=== PATIENT | male | born 1990 | race Caucasian/White ===

== ENCOUNTER 2017-11-22 12:38 | Emergency (ER) | payer MEDICAID, OTHER ==
[~2017-11-22] VITALS: Ht 172.7 cm; Wt 100.0 kg
[~2017-11-22 12:38] MED LIST: EPIN0.3P17 IM; PRED20TA PO
[2017-11-22] MEDS ORDERED: ondansetron/PF 4mg/2ml inj IV ONE (12:50)
[2017-11-22] MEDS ORDERED: normal saline 1000ML IV soln IVB ONE (12:50)
[2017-11-22 13:15] LABS: BASOPHILS % (AUTO) 0.2 % (0-1); EOSINOPHILS # (AUTO) 0.1 X10'3 (0-0.9); EOSINOPHILS % (AUTO) 0.5 % (0-6); HEMATOCRIT 49.8 % (42.0-52.0); LYMPHOCYTES # (AUTO) 0.5 X10'3 (1.1-4.8); LYMPHOCYTES % (AUTO) 3.6 % (21-51); MEAN CORPUSCULAR HEMOGLOBIN 28.5 PG (27.0-31.0); MEAN CORPUSCULAR HGB CONC 34.2 % (33.0-36.5); MEAN CORPUSCULAR VOLUME 83.2 FL (78-98); MEAN PLATELET VOLUME 7.5 FL (7.4-10.4); MONOCYTES # (AUTO) 0.4 X10'3 (0-0.9); MONOCYTES % (AUTO) 3.3 % (2-12); NEUTROPHILS # (AUTO) 12.1 X10'3 (1.8-7.7); NEUTROPHILS % (AUTO) 92.4 % (42-75); PLATELET COUNT 245 X10'3 (140-440); RED BLOOD COUNT 5.99 X10'6 (4.70-6.10); RED CELL DISTRIBUTION WIDTH 12.4 % (11.5-14.5); WHITE BLOOD COUNT 13.1 X10'3 (4.5-11.0)
[2017-11-22 13:31] LABS: ALANINE AMINOTRANSFERASE 67 U/L (12-78); ALBUMIN 4.2 G/DL (3.4-5.0); ALBUMIN/GLOBULIN RATIO 1.3 (1.1-1.5); ALKALINE PHOSPHATASE 37 IU/L (46-116); ANION GAP 14 (8-16); ASPARTATE AMINO TRANSFERASE 25 U/L (10-37); BILIRUBIN,TOTAL 0.7 MG/DL (0.1-1.0); BLOOD UREA NITROGEN 12 MG/DL (7-18); BUN/CREATININE RATIO 14.3 (5.4-32.0); CALCIUM 8.9 MG/DL (8.5-10.1); CHLORIDE 104 MMOL/L (99-107); CREATININE 0.84 MG/DL (0.60-1.10); GLUCOSE 115 MG/DL (70-104); LIPASE 107 U/L (73-393); SODIUM 140 MMOL/L (135-145); TOTAL CARBON DIOXIDE 22.5 MMOL/L (24-32); TOTAL PROTEIN 7.5 G/DL (6.4-8.2); eGFR > 90 ML/MIN
[2017-11-22 14:24] VITALS: BP 125/78
[2017-11-22] MEDS ORDERED: ONDA8TAB9 PO (14:32)
== END 2017-11-22 14:53 | disposition home or self-care (01) ==
LOC: ER 12:39
DX: K52.9 Noninfective gastroenteritis and colitis, unspecified (principal); Z79.899 Other long term (current) drug therapy
CPT/HCPCS: 36415; 80053; 83690; 85025; 96361; 96374; 99284; J2405; J7030

== ENCOUNTER 2022-01-28 09:30 | Emergency (ER) | payer BC, MEDICAID ==
[~2022-01-28] VITALS: Ht 175.3 cm; Wt 107.4 kg
[~2022-01-28 09:30] MED LIST changes: +ONDA8TAB9 PO
[2022-01-28 12:08] LABS: BASOPHILS # (AUTO) 0.1 X10'3 (0-0.2); BASOPHILS % (AUTO) 0.6 % (0-1); EOSINOPHILS % (AUTO) 0.2 % (0-6); HEMATOCRIT 48.6 % (42.0-52.0); HEMOGLOBIN 16.5 g/dl (14.0-17.9); LYMPHOCYTES # (AUTO) 1.3 X10'3 (1.1-4.8); LYMPHOCYTES % (AUTO) 8.6 % (21-51); MEAN CORPUSCULAR HEMOGLOBIN 28.4 PG (27.0-31.0); MEAN CORPUSCULAR HGB CONC 33.9 g/dL (33.0-36.5); MEAN CORPUSCULAR VOLUME 83.8 FL (78-98); MEAN PLATELET VOLUME 7.6 FL (7.4-10.4); MONOCYTES % (AUTO) 6.3 % (2-12); NEUTROPHILS # (AUTO) 13.1 X10'3 (1.8-7.7); NEUTROPHILS % (AUTO) 84.3 % (42-75); PLATELET COUNT 295 X10'3 (140-440); RED CELL DISTRIBUTION WIDTH 13.2 % (11.5-14.5); WHITE BLOOD COUNT 15.6 X10'3 (4.5-11.0)
[2022-01-28 12:24] LABS: ALANINE AMINOTRANSFERASE 63 U/L (12-78); ALBUMIN 4.1 G/DL (3.4-5.0); ALBUMIN/GLOBULIN RATIO 1.1 (1.1-1.5); ALKALINE PHOSPHATASE 36 IU/L (46-116); ANION GAP 11 (8-16); ASPARTATE AMINO TRANSFERASE 37 U/L (10-37); BILIRUBIN,TOTAL 0.7 MG/DL (0.1-1.0); BLOOD UREA NITROGEN 12 MG/DL (7-18); BUN/CREATININE RATIO 14.8 (5.4-32.0); CHLORIDE 102 MMOL/L (99-107); CHOL/HDL RATIO 4.5 (0.00-4.99); CHOLESTEROL 205 MG/DL (0-200); CREATININE 0.81 MG/DL (0.60-1.10); GLUCOSE 110 MG/DL (70-104); HDL CHOLESTEROL 46 MG/DL (35-60); LDL CHOLESTEROL 128 MG/DL (50-100); POTASSIUM 3.8 MMOL/L (3.5-5.1); SODIUM 139 MMOL/L (135-145); TOTAL CARBON DIOXIDE 25.9 MMOL/L (24-32); TOTAL PROTEIN 7.7 G/DL (6.4-8.2); TRIGLYCERIDES 158 MG/DL (20-135); eGFR > 90 ML/MIN
[2022-01-28] MEDS ORDERED: ondansetron/PF 4mg/2ml inj IV ONE (12:30)
[2022-01-28] MEDS ORDERED: normal saline 1000ml 1,000 ML IV ONE ×2 (12:30→13:25)
[2022-01-28] MEDS ORDERED: ONDA4TAB12 PO (13:47)
--- NOTE | 2022-01-28 14:20 | NUR ---
PO CHALLENGE WITH WATER. PATIENT TOLERATED WATER.
[2022-01-28 14:35] VITALS: BP 142/87
== END 2022-01-28 14:39 | disposition home or self-care (01) ==
LOC: ER 09:30
DX: K29.00 Acute gastritis without bleeding (principal); Z20.822 Contact with and (suspected) exposure to COVID-19; Z79.899 Other long term (current) drug therapy
CPT/HCPCS: 36415; 80053; 80061; 84145; 85025; 87502; 87503; 87635; 96361; 96374; 99285; C9803; J2405; J7030

== ENCOUNTER 2023-04-03 11:30 | Emergency (ER) | payer BC ==
[~2023-04-03] VITALS: Ht 177.8 cm; Wt 104.5 kg
[~2023-04-03 11:30] MED LIST changes: +ONDA4TAB12 PO
[2023-04-03 11:41] VITALS: BP 153/97; PULSE 124; RESP 20; TEMP 98.3; O2SAT 94
[2023-04-03 13:07] LABS: BASOPHILS % (AUTO) 0.2 % (0-1); EOSINOPHILS # (AUTO) 0.2 X10'3 (0-0.9); EOSINOPHILS % (AUTO) 1.3 % (0-6); HEMATOCRIT 45.5 % (42.0-52.0); HEMOGLOBIN 15.6 g/dl (14.0-17.9); LYMPHOCYTES # (AUTO) 0.6 X10'3 (1.1-4.8); LYMPHOCYTES % (AUTO) 4.5 % (21-51); MEAN CORPUSCULAR HEMOGLOBIN 28.9 PG (27.0-31.0); MEAN CORPUSCULAR HGB CONC 34.3 g/dL (33.0-36.5); MEAN CORPUSCULAR VOLUME 84.1 FL (78-98); MEAN PLATELET VOLUME 7.7 FL (7.4-10.4); MONOCYTES # (AUTO) 0.9 X10'3 (0-0.9); MONOCYTES % (AUTO) 7.4 % (2-12); NEUTROPHILS # (AUTO) 10.6 X10'3 (1.8-7.7); NEUTROPHILS % (AUTO) 86.6 % (42-75); PLATELET COUNT 218 X10'3 (140-440); RED BLOOD COUNT 5.41 X10'6 (4.70-6.10); WHITE BLOOD COUNT 12.3 X10'3 (4.5-11.0)
[2023-04-03 13:12] LABS: ALANINE AMINOTRANSFERASE 69 U/L (12-78); ALBUMIN 4.1 G/DL (3.4-5.0); ALBUMIN/GLOBULIN RATIO 1.1 (1.1-1.5); ALKALINE PHOSPHATASE 42 IU/L (46-116); ANION GAP 11 (8-16); ASPARTATE AMINO TRANSFERASE 26 U/L (10-37); BILIRUBIN,TOTAL 0.5 MG/DL (0.1-1.0); BLOOD UREA NITROGEN 8 MG/DL (7-18); CALCIUM 9.4 MG/DL (8.5-10.1); CHLORIDE 100 MMOL/L (99-107); CREATININE 0.73 MG/DL (0.60-1.10); GLUCOSE 109 MG/DL (70-104); LIPASE 88 U/L (73-393); POTASSIUM 3.8 MMOL/L (3.5-5.1); SODIUM 138 MMOL/L (135-145); TOTAL CARBON DIOXIDE 26.7 MMOL/L (24-32); TOTAL PROTEIN 7.7 G/DL (6.4-8.2); eCRCL 147 ML/MIN; eGFR > 90 ML/MIN
[2023-04-03 15:02] LABS: BILIRUBIN,URINE NEGATIVE (Neg); CLARITY,URINE CLEAR (Clear); COLOR,URINE YELLOW (Yellow); GLUCOSE, URINE NEGATIVE (Neg); KETONES,URINE TRACE mg/dl (Neg); LEUKOCYTE ESTERASE ,URINE NEGATIVE (Neg); NITRITES, URINE NEGATIVE (Neg); OCCULT BLOOD,URINE NEGATIVE (Neg); PH,URINE 7.5 (4.8-8.0); PROTEIN,URINE 30 mg/dl (Neg)
[2023-04-03 15:06] LABS: UA COLLECTION TYPE CLN CATCH MIDSTREAM
[2023-04-03 15:07] LABS: BACTERIA,URINE NONE SEEN /HPF (Neg); MUCUS STRANDS FEW /LPF (Neg); RBC,URINE 0-2 /HPF (0-2); SQUAMOUS EPITHELIAL CELL,UR NONE SEEN /LPF (FEW); WBC,URINE 0-4 /HPF (0-4)
[2023-04-03] MEDS ORDERED: ondansetron 4mg rapidly disintigrating tab PO ONE (16:00)
[2023-04-03] MEDS ORDERED: ONDA4TAB12 PO (16:12)
== END 2023-04-03 16:34 | disposition home or self-care (01) ==
LOC: ER 11:31
DX: K29.00 Acute gastritis without bleeding (principal); A05.9 Bacterial foodborne intoxication, unspecified; Z79.899 Other long term (current) drug therapy
CPT/HCPCS: 36415; 80053; 81001; 83690; 85025; 99283

== ENCOUNTER 2023-06-09 11:30 | Emergency (ER) | payer BC, SELFPAY ==
[~2023-06-09] VITALS: Ht 177.8 cm; Wt 105.2 kg
[2023-06-09 11:33] VITALS: BP 159/104; PULSE 85; TEMP 97.4; O2SAT 98
[2023-06-09 11:37] VITALS: RESP 18
--- NOTE | 2023-06-09 11:45 | NUR ---
ACTIVITIES DIRECTOR ASSESSMENT REVIEWED BY KRANTHI RN; APPROVED
[2023-06-09 12:01] LABS: STREP A SCREEN NEGATIVE (Neg)
[2023-06-09] MEDS ORDERED: AMOX-100 PO (12:33)
== END 2023-06-09 12:41 | disposition home or self-care (01) ==
LOC: ER 11:31
DX: J02.9 Acute pharyngitis, unspecified (principal); Z79.899 Other long term (current) drug therapy
CPT/HCPCS: 87081; 87880; 99283

== ENCOUNTER 2025-02-03 14:11 | Emergency (ER) | payer BC, SELFPAY ==
[~2025-02-03] VITALS: Ht 177.8 cm; Wt 106.0 kg
[~2025-02-03 14:11] MED LIST changes: +ONDA-243 PO; -ONDA4TAB12 PO
--- NOTE | 2025-02-03 16:42 | RADIOLOGY REPORT ---
CHEST RADIOGRAPH Indication: productive cough Technique: Single frontal view of the chest was obtained COMPARISON: None FINDINGS: Lines and Tubes: None Lungs: Mild increased interstitial prominence Pleura: No effusion. No pneumothorax. Cardiomediastinal contours: Unremarkable Bones: Unremarkable IMPRESSION: Possible mild viral pneumonia.
--- NOTE | 2025-02-03 16:52 | Physician Documentation ---
History of Present Illness ~ Chief Complaint: Shortness of Breath Stated Complaint: SOB Time Seen by MD: 15:49 OK to notify your PCP?: Yes Primary Medical Doctor: BRADLY Source: patient Mode of Arrival: POV Exam Limitations: no limitations HPI 35-year-old male presents with shortness breath with the clear sputum productive cough as willing as feeling a rattle in his chest when he coughs. He states that these symptoms have been going on for the past 5 days but he has not been around anybody sick that he can recall. He has an open airway and is speaking in full sentences. He is worried that he may have pneumonia. He denies any fevers or associated symptoms. No cardiac history or chest pain. Medication Reconciliation Allergies: Coded Allergies: No Known Allergies (Unverified , 06/09/23) Scheduled Epinephrine (Epipen 2-Kyle), 0.3 MG IM ONCE Prednisone* (Prednisone*), 40 MG PO DAILY Scheduled PRN ONDANSETRON ODT 4mg tablet (Ondansetron Odt), 1 TABLET PO Q6H PRN for nausea/vomiting ONDANSETRON ODT 4mg tablet (Ondansetron Odt), 1 TABLET PO q6 PRN for prn Ondansetron (Zofran Odt), 8 MG PO TID PRN for NAUSEA Past Medical History Past Medical History: Bronchitis Past Surgical History: no surgical history Smoking Status: Never smoker Alcohol Use: None Physical Exam Vital Signs: Temperature: 98.6, Source: Oral, Heart Rate: 90, Respiratory Rate: 16, BP: 135/86, Pulse Oximetry: 96, Weight: 106.000 Oxygen Flow Rate: 0 Progress Results/Orders Results/Orders Orders - ROXANNE CHEN PATENT PROSECUTION ATTORNEY Chest,Single View (02/03/25 16:24) Completed Orders - ROXANNE CHEN PATENT PROSECUTION ATTORNEY Chest,Single View (02/03/25 16:24) Benzonatate Capsule (Tessalon Perles Cap (02/03/25 16:45) Medications Received in ER Medications (Trade) Dose Ordered Sig/Nathaly Route PRN Reason Start Time Stop Time Status Last Admin Dose Admin (Tessalon Perles capsule) 100 mg ONCE ONCE PO 02/03/25 16:45 02/03/25 16:46 DC 02/03/25 16:58 100 MG Vital Signs 02/03/25 02/03/25 02/03/25 14:33 17:02 17:08 Temp 98.6 98.6 Pulse 90 90 Resp 16 18 18 B/P (MAP) 135/86 140/88 Pulse Ox 96 96 O2 Delivery Room Air O2 Flow Rate 0 EKG/XRAY/CT/US/VASC/MRI Chest X-Ray : Additional Comments Chest x-ray: as interpreted by me; no large effusion, no large infiltrate, normal mediastinum. Possible viral pneumonia. Heart Score: Heart Score Response (Comments) Value History N/A 0 EKG N/A 0 Age <45 0 Risk Factors No known risk factors 0 Troponin N/A 0 Total 0 Medical Decision Making Additional info obtained from: old records Findings 35-year-old male with upper respiratory viral infection symptoms. His chest x- ray shows possible viral pneumonia. His physical exam is reassuring his lungs sound clear. For the cough I gave him Tessalon Perle while here in the department and instructed him to take honey as needed to help soothe the throat at home. I discussed that viral illnesses are self-limited and typically last 7-10 days and supportive treatment such as Tylenol and/or ibuprofen, lots of rest, or of the fluids and should start feeling better soon. We discussed that he does not need any antibiotics at this time as this is a viral illness. We did discuss that if he gets worse is unable to bring is starting to cough up thick white sputum fevers anything like that sometimes you can get a secondary infection after a viral illness which may require antibiotics and to be seen if this happens. He should follow up with the primary care provider with in the next week and return back here for any new or worsening symptoms. He agrees with this plan. Departure Disposition: HOME / SELF CARE / HOMELESS Impression: Primary Impression: Viral pneumonia Condition: Stable Discharge Instructions: Upper Respiratory Infection, Adult Additional Instructions: For the cough you can use honey [id number] in the time he start coughing that could be very helpful to soothe the throat. As you have viral pneumonia there is no need for an antibiotic at this time. Typically self-limiting and you should start feeling better within 7-10 days of onset. You can use Tylenol and/or ibuprofen for pain relief and discomfort. Follow up with your primary care provider within the next week if you are not feeling any better and return back here for any new or worsening symptoms. Referrals: NO PRIMARY CARE PROVIDER (PCP) Education Educated: Patient Educated regarding: diagnosis, treatment, prognosis, need for follow up Additional Comment Medical Screen Exam This patient recieved a medical screening examination. After reviewing the individual's medical complaints with presenting symptoms and performing an appropriate physical examination, it was determined that no immediate life- threatening emergency medical condition is present. This individual is also not a women having contractions. Signature Scribe Signature: . Attestation: Scribed for Roxanne Chen Bead Preparer by Roxanne Berg NP . 02/04/25 00:02 Parts of this note were created using [employer] voice recognition software program. While efforts were made to correct any mistakes made by this voice recognition software program, nonsensical phrases may remain in this note. In addition, there may be errors and syntax, grammar, content and spelling. ROXANNE CHEN PATENT PROSECUTION ATTORNEY Feb 03, 2025 16:52
[2025-02-03 17:02] VITALS: BP 140/88; PULSE 90; TEMP 98.6; O2SAT 96
[2025-02-03 17:08] VITALS: RESP 18
== END 2025-02-03 17:08 | disposition home or self-care (01) ==
LOC: ER 14:11
DX: J12.9 Viral pneumonia, unspecified (principal); B97.89 Other viral agents as the cause of diseases classified elsewhere
CPT/HCPCS: 71045; 99283

== ENCOUNTER 2025-02-07 11:15 | Emergency (ER) | payer BC ==
[~2025-02-07] VITALS: Ht 177.8 cm; Wt 105.3 kg
[2025-02-07 11:17] VITALS: BP 135/89; PULSE 80; RESP 16; TEMP 98.5; O2SAT 98
--- NOTE | 2025-02-07 11:34 | Physician Documentation ---
History of Present Illness ~ Chief Complaint: Cough Stated Complaint: RECHECK Time Seen by MD: 11:25 Primary Medical Doctor: BRADLY AZUL 45 year year old male returns to the ED after being evaluated for suspected viral pneumonia this last weekend. States his symptoms have persisted in the color of his mucus is change reportedly. States he has had an occasional fever over 100. Medication Reconciliation Allergies: Coded Allergies: No Known Allergies (Unverified , 02/07/25) Scheduled Amox Tr/Potassium Clavulanate 875/125 MG (Augmentin 875/125 MG), 1 TAB PO Q12H Epinephrine (Epipen 2-Kyle), 0.3 MG IM ONCE Prednisone* (Prednisone*), 40 MG PO DAILY Scheduled PRN ONDANSETRON ODT 4mg tablet (Ondansetron Odt), 1 TABLET PO Q6H PRN for alireza sea/vomiting ONDANSETRON ODT 4mg tablet (Ondansetron Odt), 1 TABLET PO q6 PRN for prn Ondansetron (Zofran Odt), 8 MG PO TID PRN for NAUSEA Past Medical History Past Medical History: Bronchitis Past Surgical History: no surgical history Alcohol Use: None Review of Systems All Other Systems at this time: Reviewed and Negative ROS As stated above in the HPI, otherwise all systems are reviewed and negative. Physical Exam Vital Signs: Temperature: 98.5, Source: Oral, Heart Rate: 80, Respiratory Rate: 16, BP: 135/89, Pulse Oximetry: 98, Weight: 105.300 Oxygen Flow Rate: 0 Physical Exam General: Alert, no apparent distress. Respiratory: Coarse lung sounds no crackles or rales Cardiovascular: Regular rate and rhythm, no murmurs. Neurologic: Oriented x4. . Progress Results/Orders Results/Orders Vital Signs 02/07/25 11:17 Temp 98.5 Pulse 80 Resp 16 B/P (MAP) 135/89 Pulse Ox 98 O2 Flow Rate 0 Medical Decision Making Findings Going to empirically treat this patient with the Augmentin based on the length of his symptoms which has extended past 10 days. He has hemodynamically stable good historian in a good candidate for outpatient therapy Differential Dx:Considerations: Include: Allergic rhinitis, Influenza, Otitis media, Peritonsillar abscess, Pharyngitis-Diphtheria, Pharyngitis-Streptoccal, Pharyngitis-Viral, Pneumonia, Pnuemonitis, Sinusitis, URI, Other Departure Impression: Primary Impression: Acute bronchitis Condition: Stable Discharge Instructions: Bronchitis, Upper Respiratory Infection, Adult Referrals: NO PRIMARY CARE PROVIDER (PCP) Prescriptions Amox Tr/Potassium Clavulanate 875/125 MG (Augmentin 875/125 MG) 875 Mg-125 Mg Tablet 1 TAB PO Q12H for 10 Days, #20 TAB Prov: MARITA CLEMENTS [employer] CONSOLE OPERATOR TRACK 02/07/25 Signature Scribe Signature: f Attestation: Scribed for Marita Clements Clinical Systems Educator by Marita Clements - MALIA . 02/07/25 18:04 MARITA CLEMENTS [employer]GIS CONSOLE OPERATOR TRACK Feb 07, 2025 11:34
[2025-02-07] MEDS ORDERED: AMOX-580 PO (11:41)
== END 2025-02-07 11:48 | disposition home or self-care (01) ==
LOC: ER 11:16
DX: J20.9 Acute bronchitis, unspecified (principal); Z79.899 Other long term (current) drug therapy
CPT/HCPCS: 99283